=== PATIENT | male | born 2000 | race African-American/Black ===

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

== ENCOUNTER → 2021-05-14 08:45 | Outpatient (BNVA) | payer MEDICAID, SELFPAY | PROVIDERS: Visit Provider Counselor Mental Health | DX: F90.2 Attention-deficit hyperactivity disorder, combined type (principal); F43.11 Post-traumatic stress disorder, acute | CPT/HCPCS: 90834 ==

== ENCOUNTER → 2021-05-29 08:43 | Outpatient (BNVA) | payer MEDICAID, SELFPAY | PROVIDERS: Visit Provider Counselor Mental Health | DX: F90.2 Attention-deficit hyperactivity disorder, combined type (principal); F43.11 Post-traumatic stress disorder, acute | CPT/HCPCS: 90834 ==

== ENCOUNTER 2021-06-02 09:35 | Inpatient (IN) | payer MEDICAID, SELFPAY ==
[2021-06-02 09:37] VITALS: BMI 29.4
[2021-06-02 09:42] VITALS: BP 139/84; PULSE 77; RESP 16; TEMP 36.3; O2SAT 97
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
[2021-06-02 13:08] VITALS: BP 139/84; PULSE 77; RESP 16; TEMP 36.6; O2SAT 97
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
[2021-06-02] MEDS: citalopram 20 mg Tablet PO (15:01)
[2021-06-02 15:33] LABS: Basophils % 0.5 %; Eosinophils # 0.3 10^3/uL (0.0-0.8); Eosinophils % 4.4 %; Hematocrit 44.9 % (42.0-52.0); Lymphocytes # 2.2 10^3/uL (1.5-6.5); Lymphocytes % 33.7 %; Mean Corpuscular HGB Conc 33.4 g/dL (30.0-36.0); Mean Corpuscular Hemoglobin 30.8 pg (28.0-34.0); Mean Corpuscular Volume 92.2 fL (80-94); Monocytes # 0.9 10^3/uL (0.2-0.9); Neutrophils # 3.08 10^3/uL (1.8-8.0); Neutrophils % 47.2 %; Nucleated Red Blood Cells % 0 %; Platelet Count 278 10^3/cmm (130-400); Red Blood Count 4.87 10^6/uL (4.1-5.3); Red Cell Distribution Width 13.2 % (12.1-15.1); White Blood Count 6.5 10^3/uL (4.5-13.0)
[2021-06-02 15:54] LABS: Alanine Aminotransferase 37 U/L (0-41); Albumin Level 4.4 g/dL (3.5-5.2); Alkaline Phosphatase 108 IU/L (40-130); Aspartate Amino Transferase 26 U/L (0-40); Blood Urea Nitrogen 14 mg/dL (6-20); Calcium 9.7 mg/dL (8.5-10.5); Carbon Dioxide 25 mmol/L (22-29); Chloride 104 mmol/L (98-107); Glomerular Filtration Rate 131.5 mL/min (90-130); Glucose 111 mg/dL (65-115); Osmolality Calculated 293 mOsm/kg (285-295); Sodium 141 mmol/L (136-145); Total Bilirubin 0.7 mg/dL (0.15-1.2); Total Protein 7.4 g/dL (6.6-8.7)
[2021-06-02 15:56] LABS: Anion Gap 16.4 (5-19); Potassium 4.4 mmol/L (3.5-5.1)
[2021-06-02 16:59] VITALS: PULSE 100; RESP 18; O2SAT 96
[2021-06-02 20:57] VITALS: BP 137/86; PULSE 99; RESP 16; TEMP 36; O2SAT 94
--- NOTE | 2021-06-03 05:47 | PC.NURSE ---
PM ASSESSMENT PT V/S ARE WNL, NO BEHAVIORAL OUTBURSTS, PT IS APPROPRIATE WITH STAFF. SHY AT FIRST, CALM AND COOPERATIVE.
[2021-06-03 06:00] VITALS: BP 134/80; PULSE 92; RESP 18; TEMP 37; O2SAT 98
[2021-06-03] MEDS: citalopram 20 mg Tablet PO (09:06)
[2021-06-03] MEDS: montelukast sodium 10 mg Tablet PO (09:07)
[2021-06-03 14:00] VITALS: BP 150/80; PULSE 92; RESP 17; TEMP 36.7; O2SAT 97
--- NOTE | 2021-06-03 14:11 | PM.NPN ---
Subjective NPU Subjective: Interval history: Denies any interval complaints Denies any interval mood symptoms, denies any suicidal ideation Denies any interval irritability or anger Reports being compliant with medication and denies any medication side effects Continues to be future oriented and looking forward to going to a long term Per staff, no interval inappropriate behaviors Mental Status Exam MSE Comments: Pleasant, polite, interactive, appropriately groomed and dressed, calm, cooperative, childlike in his mannerisms, good eye contact Psychomotor activity is neither increased or decreased, no agitation Speech is normal rate and volume, spontaneous, clear articulation, not pressured I feel good, congruent affect, smiles appropriate times, not labile Alert and oriented to person, place, time, situation Memory and concentration appear to be fair to intact per interview Thought process, linear, no flight of ideas, no looseness of associations Thought content, no delusions, no hallucinations, no suicidal homicidal ideation Insight and judgment appear to be fair Vitals/I&O/Wt Last Vital Signs Temp 98.6 F 06/03/21 06:00 Pulse 92 06/03/21 06:00 Resp 18 06/03/21 06:00 BP 134/80 06/03/21 06:00 Pulse Ox 98 06/03/21 06:00 Weight last 48 hrs Weight 103.873 kg Weight 103.873 kg Data NPU : 06/02/21 15:23 06/02/21 15:13 A&P Assessment and plan (1) PTSD (post-traumatic stress disorder): Status: Acute (2) ADHD: Status: Acute Qualifiers: Attention deficit-hyperactivity disorder type: combined inattentive-hyperactive Qualified Code(s): F90.2 - Attention-deficit hyperactivity disorder, combined type Additional A&P Information No interval changes, no interval mood symptoms, no behavioral disturbances, pleasant and polite, cooperative, no inappropriate behaviors being reported by staff CBC and CMP were unremarkable, patient tolerating Depakote well with no reports of any medication side effects CONTINUE current medication, continue to monitor Attestations NPU Medical Necessity Statement*: Continues to require psychiatric hospitalization for stabilization, coordination for safe discharge Coding Level of Care Code Acute Logistics Officer for [facility] Fwd Diagnoses PTSD (post-traumatic stress disorder) F43.10 ADHD F90.2 Attention deficit-hyperactivity disorder type: combined inattentive-hyperactive
[2021-06-03 22:00] VITALS: BP 138/90; PULSE 93; RESP 17; TEMP 37; O2SAT 95
[2021-06-04 06:00] VITALS: BP 124/75; PULSE 98; RESP 15; TEMP 36.8; O2SAT 98
[2021-06-04] MEDS: citalopram 20 mg Tablet PO (08:57)
[2021-06-04] MEDS: montelukast sodium 10 mg Tablet PO (08:57)
--- NOTE | 2021-06-04 13:39 | PM.NPN ---
Subjective NPU Subjective: Interval history: Continues to deny any interval complaints Denies any interval mood symptoms, denies any suicidal ideation Denies any interval irritability or anger Compliant with medication and denies any medication side effects Per staff, no interval inappropriate behaviors Mental Status Exam MSE Comments: Appropriately groomed and dressed, polite, cooperative, childlike in his mannerisms, good eye contact Psychomotor activity is neither increased or decreased, no agitation Speech is normal rate and volume, spontaneous, clear articulation, not pressured Good, congruent affect, smiles appropriate times, not labile Alert and oriented to person, place, time, situation Memory and concentration appear to be fair to intact per interview Thought process, linear, no flight of ideas, no looseness of associations Thought content, no delusions, no hallucinations, no suicidal homicidal ideation Insight and judgment appear to be fair Vitals/I&O/Wt Last Vital Signs Temp 98.2 F 06/04/21 06:00 Pulse 98 06/04/21 06:00 Resp 15 06/04/21 06:00 BP 124/75 06/04/21 06:00 Pulse Ox 98 06/04/21 06:00 Data NPU : 06/02/21 15:23 06/02/21 15:13 A&P Assessment and plan (1) PTSD (post-traumatic stress disorder): Status: Acute (2) ADHD: Status: Acute Qualifiers: Attention deficit-hyperactivity disorder type: combined inattentive-hyperactive Qualified Code(s): F90.2 - Attention-deficit hyperactivity disorder, combined type Additional A&P Information No interval mood symptoms, continues to be appropriate CONTINUE current medication, continue to monitor Attestations NPU Medical Necessity Statement*: Continues to require psychiatric hospitalization for medication stabilization Coding Level of Care Code Acute Visual Merchandising Assistant for [facility] Fwd Diagnoses PTSD (post-traumatic stress disorder) F43.10 ADHD F90.2 Attention deficit-hyperactivity disorder type: combined inattentive-hyperactive
[2021-06-04 13:43] VITALS: BP 146/78; PULSE 90; RESP 17; TEMP 37.1; O2SAT 96
[2021-06-04 19:38] VITALS: BP 157/78; PULSE 80; RESP 18; TEMP 36.8; O2SAT 98
[2021-06-05 06:00] VITALS: BP 114/70; PULSE 82; RESP 17; TEMP 37.2; O2SAT 96
[2021-06-05] MEDS: montelukast sodium 10 mg Tablet PO (07:37)
[2021-06-05] MEDS: citalopram 20 mg Tablet PO (07:37)
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
[2021-06-05 09:31] VITALS: BP 114/70; PULSE 82; RESP 17; TEMP 37.2; O2SAT 96
== END 2021-06-05 14:14 | disposition home or self-care (01) | DRG 882 ==
PROVIDERS: Admitting Provider Psychiatry & Neurology Psychiatry; Visit Provider Psychiatry & Neurology Psychiatry
DX: F43.10 Post-traumatic stress disorder, unspecified (principal); F90.2 Attention-deficit hyperactivity disorder, combined type; F91.8 Other conduct disorders; Z62.9 Problem related to upbringing, unspecified; J45.909 Unspecified asthma, uncomplicated; F79 Unspecified intellectual disabilities; F81.9 Developmental disorder of scholastic skills, unspecified
CPT/HCPCS: 36415; 80053; 85025

== ENCOUNTER → 2021-06-11 07:43 | Outpatient (BNVA) | payer MEDICAID, SELFPAY | PROVIDERS: Visit Provider Counselor Mental Health | DX: F90.2 Attention-deficit hyperactivity disorder, combined type (principal); F43.11 Post-traumatic stress disorder, acute | CPT/HCPCS: 90834 ==

== ENCOUNTER → 2021-06-15 13:41 | Outpatient (BNVA) | payer MEDICAID, SELFPAY | PROVIDERS: Visit Provider Psychiatry & Neurology Psychiatry | DX: F90.9 Attention-deficit hyperactivity disorder, unspecified type (principal); F43.12 Post-traumatic stress disorder, chronic; F65.0 Fetishism; F79 Unspecified intellectual disabilities; F63.9 Impulse disorder, unspecified | CPT/HCPCS: 99204 ==

== ENCOUNTER → 2021-06-19 09:40 | Outpatient (BNVA) | payer MEDICAID, SELFPAY | PROVIDERS: Visit Provider Counselor Mental Health | DX: F90.2 Attention-deficit hyperactivity disorder, combined type (principal); F43.11 Post-traumatic stress disorder, acute | CPT/HCPCS: 90832 ==

== ENCOUNTER → 2021-07-03 09:37 | Outpatient (BNVA) | payer MEDICAID, SELFPAY | PROVIDERS: Visit Provider Counselor Mental Health | DX: F90.2 Attention-deficit hyperactivity disorder, combined type (principal); F43.11 Post-traumatic stress disorder, acute | CPT/HCPCS: 90834 ==

== ENCOUNTER 2021-07-15 12:04 | Inpatient (IN) | payer MEDICAID, SELFPAY ==
--- NOTE | 2021-07-15 12:07 | ECG_ITS ---
[facility] Test Date: 2021-07-15 Pat Name: Jazz Moon Department: Room: Gender: Male Supply Chain Development Manager: : 2000 Requested By: John Mcmillan Order Number: [id number] Francis MD: Meaghan Burch M.D. Measurements Intervals [place] Rate: 90 P: 40 MO: 163 QRS: 47 QRSD: 83 T: 5 QT: 338 QTc: 415 Interpretive Statements SINUS RHYTHM WITH SINUS ARRHYTHMIA POSSIBLE LEFT ATRIAL ENLARGEMENT [-0.1mV P-WAVE IN V1/V2] NONSPECIFIC ST & T-WAVE ABNORMALITY No previous ECG available for comparison Electronically Signed On 07-17-2021 18:20:45 CDT by Meaghan Burch M.D. [email or web address]
[2021-07-15 12:11] VITALS: BP 157/97; PULSE 107; RESP 16; TEMP 36.7; O2SAT 95; BMI 29.8
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
[2021-07-15 13:02] VITALS: BP 135/79; PULSE 91; O2SAT 94
[2021-07-15 13:21] LABS: Basophils % 0.7 %; Eosinophils # 0.3 10^3/uL (0.0-0.8); Eosinophils % 4.4 %; Hematocrit 42.9 % (42.0-52.0); Hemoglobin 14.4 g/dL (11.7-16.6); Lymphocytes # 1.7 10^3/uL (1.5-6.5); Lymphocytes % 27.1 %; Mean Corpuscular HGB Conc 33.6 g/dL (30.0-36.0); Mean Corpuscular Hemoglobin 30.8 pg (28.0-34.0); Mean Corpuscular Volume 91.9 fl (80-94); Mean Platelet Volume 9.3 fL (7.4-10.4); Monocytes # 0.7 10^3/uL (0.2-0.9); Monocytes % 11.9 %; Neutrophils # 3.41 10^3/uL (1.8-8.0); Neutrophils % 55.6 %; Nucleated Red Blood Cells % 0 %; Platelet Count 243 10^3/cmm (130-400); Red Blood Count 4.67 10^6/uL (4.1-5.3); Red Cell Distribution Width 13.2 % (12.1-15.1); White Blood Count 6.1 10^3/uL (4.5-13.0)
[2021-07-15 13:48] LABS: Alanine Aminotransferase 53 U/L (0-41); Albumin Level 4.4 g/dL (3.5-5.2); Alkaline Phosphatase 91 IU/L (40-130); Anion Gap 16.1 (5-19); Aspartate Amino Transferase 28 U/L (0-40); Blood Urea Nitrogen 16 mg/dL (6-20); Calcium 9.5 mg/dL (8.5-10.5); Carbon Dioxide 25 mmol/L (22-29); Chloride 98 mmol/L (98-107); Globulin 2.9 g/dL (1.3-4.6); Glomerular Filtration Rate 175.8 mL/min (90-130); Glucose 111 mg/dL (65-115); Osmolality Calculated 282 mOsm/kg (285-295); Potassium 4.1 mmol/L (3.5-5.1); Sodium 135 mmol/L (136-145); Total Bilirubin 0.6 mg/dL (0.15-1.2); Total Protein 7.3 g/dL (6.6-8.7)
[2021-07-15 13:55] LABS: Acetaminophen < 5.0 ug/mL (10-30); Alcohol Level < 10 mg/dL (0-10); Salicylate < 0.3 mg/dL (3-10)
[2021-07-15 15:12] VITALS: BP 153/77; PULSE 86; RESP 18; TEMP 36.9; O2SAT 94
[2021-07-15 16:34] LABS: Amphetamines Screen Urine Positive (Negative); Barbiturates Screen Urine Negative (Negative); Cocaine Screen Urine Negative (Negative); PCP Screen Urine Negative (Negative); THC Screen Urine Negative (Negative)
[2021-07-15 16:35] LABS: Benzodiazepines Screen Urine Negative (Negative); Opiate Screen Urine Negative (Negative)
[2021-07-15 20:09] VITALS: BP 137/72; PULSE 77; RESP 20; TEMP 37; O2SAT 96
[2021-07-16 06:00] VITALS: BP 99/59; PULSE 75; RESP 19; TEMP 36.6; O2SAT 95
[2021-07-16] MEDS: citalopram 20 mg Tablet PO (09:05)
[2021-07-16] MEDS: montelukast sodium 10 mg Tablet PO (09:05)
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
[2021-07-16 13:51] VITALS: BP 110/57; PULSE 79; RESP 15; TEMP 36.7; O2SAT 99
[2021-07-16 20:25] VITALS: BP 130/75; PULSE 75; RESP 18; TEMP 37.1; O2SAT 97
--- NOTE | 2021-07-17 05:41 | PC.NURSE ---
previous behavior assessment was for a different patient.
[2021-07-17 06:00] VITALS: BP 105/44; PULSE 65; RESP 17; TEMP 37.1; O2SAT 97
[2021-07-17] MEDS: citalopram 20 mg Tablet PO (09:09)
[2021-07-17] MEDS: montelukast sodium 10 mg Tablet PO (09:09)
[2021-07-17 14:00] VITALS: BP 131/73; PULSE 66; RESP 18; TEMP 36.9; O2SAT 99
--- NOTE | 2021-07-17 18:13 | P.PN_ITS ---
Subjective NPU Subjective: Interval history: Patient presented today reporting that he is doing okay. He had some continued conversation about the circumstances regarding and he feels fairly confident that the whole idea of him going to a more controlled environment would be in his best interest. He thought that we did get someone that was not willing to consider her more and the plan is to h ave him, on Tuesday and evaluate him in person to make a decision. We discussed the risk benefits and alternatives of having him stay and make sure this takes place on Tuesday of the risk of him leaving and getting into some difficulties and he understood agreed proceed as documented in his note. Mental Status Exam MSE Comments: This is a tall, well-nourished, well-developed, male, in hospital scrubs, with adequate grooming, and eye contact. No abnormal movements except for mild psychomotor retardation. Cooperative with exam in no acute distress. Speech was slightly decreased rate and volume. Mood described as okay; affect slightly subdued. Thought process, organized. Thought content: patient denied any suicidal or homicidal ideation, there were no delusions reported or noted, patient denied any auditory or visual hallucinations. Attention, concentration, and memory appear intact but were not formally tested. He is alert and oriented times three. Insight and judgment are limited. Impulse control impaired and intellectual ability limited to impaired. Vitals/I&O/Wt Last Vital Signs Temp 97.7 F 07/17/21 20:35 Pulse 87 07/17/21 20:35 Resp 18 07/17/21 20:35 BP 138/66 07/17/21 20:35 Pulse Ox 97 07/17/21 20:35 Data NPU : 07/15/21 13:11 07/15/21 13:11 A&P Assessment and plan (1) Suicidal ideation: Status: Acute (2) Impulse control disorder in adult: Status: Acute (3) Intellectual disability: Status: Acute (4) Fetishism: Status: Acute (5) ADHD (attention deficit hyperactivity disorder): Status: Acute (6) Post-traumatic stress disorder, chronic: Status: Acute Additional A&P Information This is a 20 year old, male, with attention deficit hyperactivity disorder, by history, versus impulse control disorder, unspecified, and fetishism, who presents after an event where he was trying to obtain some items for his fetish that nearly got him arrested, as his family searches for an ISL. RECOMMENDATION AND PLAN: 1. Continue current medication. 2. Encourage individual, group, and milieu therapy. 3. Continue q-15 minute checks for safety. 4. Will work with outpatient team to determine whether there are some medication changes that would make sense, and see how we can assist in him getting to an ISL. Given recent behaviors and risk factors we will continue to monitor, through Tuesday. Involuntary Hold Information 96 Hour Hold: 96 Hour Involuntary Admission: No Attestations NPU Medical Necessity Statement*: Inpatient hospitalization is medically necessary and the clinically appropriate intervention at this time. We will monitor medications and make changes as indicated. =Likely length of stay 3-4 days. Coding Level of Care Code Acute Retail Warehouse Supervisor for g Fwd Diagnoses Suicidal ideation R45.851 Impulse control disorder in adult F63.9 Intellectual disability F79 Fetishism F65.0 ADHD (attention deficit hyperactivity disorder) F90.9 Post-traumatic stress disorder, chronic F43.12
[2021-07-17 20:35] VITALS: BP 138/66; PULSE 87; RESP 18; TEMP 36.5; O2SAT 97
[2021-07-18 06:00] VITALS: BP 109/56; PULSE 69; RESP 16; TEMP 36.7; O2SAT 96
[2021-07-18] MEDS: montelukast sodium 10 mg Tablet PO (10:05)
[2021-07-18] MEDS: citalopram 20 mg Tablet PO (10:05)
--- NOTE | 2021-07-18 10:17 | PM.NPN ---
Subjective NPU Subjective: Interval history: Patient presents today with a positive skin on the ISL placement possibilities. He reported that he is sure that it to be helpful giving him structure and a safe place to thrive. He denied any issues on the unit or any problems he should discuss and reports that he is eating okay and sleeping fine. Mental Status Exam MSE Comments: This is a tall, well-nourished, well-developed, male, in hospital scrubs, with adequate grooming, and eye contact. No abnormal movements. Cooperative with exam in no acute distress. Speech was slightly decreased rate and volume. Mood described as fine; affect congruent. Thought process, organized. Thought content: patient denied any suicidal or homicidal ideation, there were no delusions reported or noted, patient denied any auditory or visual hallucinations. Attention, concentration, and memory appear intact but were not formally tested. He is alert and oriented times three. Insight and judgment appear fair. Impulse control impaired and intellectual ability limited to impaired. Vitals/I&O/Wt Last Vital Signs Temp 98.1 F 07/18/21 06:00 Pulse 69 07/18/21 06:00 Resp 16 07/18/21 06:00 BP 109/56 07/18/21 06:00 Pulse Ox 96 07/18/21 06:00 Data NPU : 07/15/21 13:11 07/15/21 13:11 A&P Additional A&P Information (1) Suicidal ideation: (2) Impulse control disorder in adult: (3) Intellectual disability: (4) Fetishism: (5) ADHD (attention deficit hyperactivity disorder): (6) Post-traumatic stress disorder, chronic: Additional A&P Information This is a 20 year old, male, with attention deficit hyperactivity disorder, by history, versus impulse control disorder, unspecified, and fetishism, who presents after an event where he was trying to obtain some items for his fetish that nearly got him arrested, as his family searches for an ISL. RECOMMENDATION AND PLAN: 1. Continue current medication. 2. Encourage individual, group, and milieu therapy. 3. Continue q-15 minute checks for safety. 4. Will work with outpatient team to determine whether there are some medication changes that would make sense. He is open to the ISL placement and awaiting the interview on Tuesday. Involuntary Hold Information 96 Hour Hold: 96 Hour Involuntary Admission: No Attestations NPU Medical Necessity Statement*: Inpatient hospitalization is medically necessary and the clinically appropriate intervention at this time. We will monitor medications and make changes as indicated. Likely length of stay 3-4 days. Coding Level of Care Code Acute It Security Architect for Camryn Nelson
[2021-07-18 14:00] VITALS: BP 156/85; PULSE 97; RESP 20; TEMP 36.3; O2SAT 95
[2021-07-18 20:32] VITALS: BP 141/67; PULSE 105; RESP 20; TEMP 36.9; O2SAT 95
[2021-07-18] MEDS: hyDROXYzine 25 mg Capsule 50 MG PO (21:38)
[2021-07-18] MEDS: trazodone 50 mg Tablet PO (21:38)
[2021-07-18] MEDS: albuterol 8 gm MDI 2 PUFF INHALATION (22:35)
[2021-07-18 22:40] VITALS: PULSE 96; RESP 18; O2SAT 96
[2021-07-19 06:00] VITALS: BP 118/66; PULSE 87; RESP 20; TEMP 37; O2SAT 96
[2021-07-19] MEDS: citalopram 20 mg Tablet PO (09:07)
[2021-07-19] MEDS: montelukast sodium 10 mg Tablet PO (09:07)
--- NOTE | 2021-07-19 10:10 | PM.NPN ---
Subjective NPU Subjective: Interval history: Patient presents today denying any complaints. He was somewhat anxious about what type of the interview with the ISL would be. I promised him that after our treatment team meeting I would make sure someone relate to him the time if we were able to determine that. Otherwise he denied any issues and is looking forward to the meeting. Mental Status Exam MSE Comments: This is a tall, well-nourished, well-developed, male, in hospital scrubs, with adequate grooming, and eye contact. No abnormal movements. Cooperative with exam in no acute distress. Speech was slightly decreased rate and volume. Mood described as fine; affect congruent. Thought process, organized. Thought content: patient denied any suicidal or homicidal ideation, there were no delusions reported or noted, patient denied any auditory or visual hallucinations. Attention, concentration, and memory appear intact but were not formally tested. He is alert and oriented times three. Insight and judgment appear fair. Impulse control impaired and intellectual ability limited to impaired. Vitals/I&O/Wt Last Vital Signs Temp 98.6 F 07/19/21 06:00 Pulse 87 07/19/21 06:00 Resp 20 H 07/19/21 06:00 BP 118/66 07/19/21 06:00 Pulse Ox 96 07/19/21 06:00 Weight last 48 hrs Weight 107.048 kg Weight 107.048 kg Data NPU : 07/15/21 13:11 07/15/21 13:11 A&P Additional A&P Information (1) Suicidal ideation: (2) Impulse control disorder in adult: (3) Intellectual disability: (4) Fetishism: (5) ADHD (attention deficit hyperactivity disorder): (6) Post-traumatic stress disorder, chronic: This is a 20 year old, male, with attention deficit hyperactivity disorder, by history, versus impulse control disorder, unspecified, and fetishism, who presents after an event where he was trying to obtain some items for his fetish that nearly got him arrested, as his family searches for an ISL. RECOMMENDATION AND PLAN: 1. Continue current medication. 2. Encourage individual, group, and milieu therapy. 3. Continue q-15 minute checks for safety. 4. Will work with outpatient team to determine whether there are some medication changes that would make sense. He is open to the ISL placement and awaiting the interview tomorrow. Involuntary Hold Information 96 Hour Hold: 96 Hour Involuntary Admission: No Attestations NPU Medical Necessity Statement*: Inpatient hospitalization is medically necessary and the clinically appropriate intervention at this time. We will monitor medications and make changes as indicated. Likely length of stay 2-3 days. Coding Level of Care Code Acute Fashion Consultant Selling for Camryn Nelson
[2021-07-19 14:00] VITALS: BP 133/67; PULSE 89; RESP 16; TEMP 36.7; O2SAT 96
[2021-07-19 20:39] VITALS: BP 126/80; PULSE 79; RESP 22; TEMP 36.9; O2SAT 95
[2021-07-19] MEDS: hyDROXYzine 25 mg Capsule 50 MG PO (22:45)
[2021-07-19] MEDS: trazodone 50 mg Tablet PO (22:45)
[2021-07-20 06:00] VITALS: BP 111/55; PULSE 83; RESP 18; TEMP 36.8; O2SAT 95
[2021-07-20] MEDS: montelukast sodium 10 mg Tablet PO (09:52)
[2021-07-20] MEDS: citalopram 20 mg Tablet PO (09:52)
[2021-07-20 13:54] VITALS: BP 128/75; PULSE 85; RESP 17; TEMP 36.9; O2SAT 96
--- NOTE | 2021-07-20 18:25 | P.PN_ITS ---
Subjective NPU Subjective: Interval history: Patient presents today reporting that he is doing okay and he is willing to stay through till tomorrow. Multiple calls were received from his mother with expression of great concern about his discharge and being upset that something else has not been arranged. Insurance called with some confusion question of an evaluation for the patient. He understands we are awaiting the decision from the ISL and beyond that family has been reportedly investigating ISL's. He is willing to go to any place that is reasonable. Mental Status Exam MSE Comments: This is a tall, well-nourished, well-developed, male, in hospital scrubs, with adequate grooming, and eye contact. No abnormal movements. Cooperative with exam in no acute distress. Speech was slightly decreased rate and volume. Mood described as pretty good; affect congruent. Thought process, organized. Thought content: patient denied any suicidal or homicidal ideation, there were no delusions reported or noted, patient denied any auditory or visual hallucinations. Attention, concentration, and memory appear intact but were not formally tested. He is alert and oriented times three . Insight and judgment appear fair. Impulse control impaired and intellectual ability limited to impaired. Vitals/I&O/Wt Last Vital Signs Temp 98.9 F 07/20/21 19:53 Pulse 94 07/20/21 19:53 Resp 20 H 07/20/21 19:53 BP 138/84 07/20/21 19:53 Pulse Ox 94 07/20/21 19:53 Weight last 48 hrs Weight 107.048 kg Data NPU : 07/15/21 13:11 07/15/21 13:11 A&P Additional A&P Information (1) Suicidal ideation: (2) Impulse control disorder in adult: (3) Intellectual disability: (4) Fetishism: (5) ADHD (attention deficit hyperactivity disorder): (6) Post-traumatic stress disorder, chronic: This is a 20 year old, male, with attention deficit hyp eractivity disorder, by history, versus impulse control disorder, unspecified, and fetishism, who presents after an event where he was trying to obtain some items for his fetish that nearly got him arrested, as his family searches for an ISL. RECOMMENDATION AND PLAN: 1. Continue current medication. 2. Encourage individual, group, and milieu therapy. 3. Continue q-15 minute checks for safety. 4. Patient awaiting ISL decision where they requested 1 more day given the chaos and frustration at home discharge seems to be setting him up for failure. He is open to the ISL placement and awaiting the decision tomorrow. The elements of his condition were apparent over a month ago and family has been working on this programming but unfortunately systems wheels will slowly and his behaviors do portend some risk, not sufficient to recommend continued acute hospitalization prior to residential services becoming available. Involuntary Hold Information 96 Hour Hold: 96 Hour Involuntary Admission: No Attestations NPU Medical Necessity Statement*: Inpatient hospitalization is medically necessary and the clinically appropriate intervention at this time. We will monitor medications and make changes as indicated. Tentative plan for discharge tomorrow. Coding Level of Care Code Acute Coordinating Producer for Camryn Nelson
[2021-07-20 19:53] VITALS: BP 138/84; PULSE 94; RESP 20; TEMP 37.2; O2SAT 94
[2021-07-20] MEDS: trazodone 50 mg Tablet PO (22:16)
[2021-07-20] MEDS: hyDROXYzine 25 mg Capsule 50 MG PO (22:16)
--- NOTE | 2021-07-20 22:20 | PC.NURSE ---
Trazodone 50mg PO, Vistaril 50mgPO given for sleep and anxiety.
[2021-07-21 06:00] VITALS: BP 116/75; PULSE 72; RESP 20; TEMP 36.7; O2SAT 96
[2021-07-21] MEDS: citalopram 20 mg Tablet PO (08:42)
[2021-07-21] MEDS: montelukast sodium 10 mg Tablet PO (08:42)
--- NOTE | 2021-07-21 12:15 | NPU.GN ---
[facility] Group Topic: 2 true 1 false General Mood of Group:Patient did attend group, he was properly dressed, on time, and had good hygiene. In group we played a game called 2 true one false. Everyone had to come up with 2 true statements about their self and one false statement about their self, this was a way to get group members to openly talk about themselves. They are able to utilize positive self talk. The group interacted properly and openly. We discussed the purpose of NPU, ways to openly speak with the physician and discussed the purpose of delinquency prevention social worker and safe discharge. Jazz shared his positive experience from high school playing baseball and basketball. He also shared how he met a few famous football players in his time.
[2021-07-21 14:00] VITALS: BP 126/77; PULSE 92; RESP 20; TEMP 36.3; O2SAT 99
[2021-07-21 14:51] VITALS: BP 116/75; PULSE 72; RESP 20; TEMP 36.7; O2SAT 96
[2021-07-21] MEDS: OLANZapine 5 mg ODT PO (16:34)
--- NOTE | 2021-07-21 16:35 | PC.NURSE ---
PRN ZYPREXA ZYDIS PRN ZYPREXA ZYDIS 5 MG GIVEN PO PER PT C/O AGITATION. PT REPORTS THAT HE IS ANGRY THAT HE WAS NOT ABLE TO GO HOME TODAY AND REQUESTED SOMETHING FOR HIS AGITATION. WILL CONTINUE TO MONITOR FOR MEDICATION EFFECTIVENESS.
--- NOTE | 2021-07-21 17:59 | P.PN_ITS ---
Subjective NPU Subjective: Interval history: Patient presents today clearly reacting to the chaos of the discharge challenges. The ISL which had previously led us to believe that they were on the verge of a decision punted the ball further down the road saying he would be a week until a certain decision-maker returned and they can give an actual answer. Patient's mother had reported now significant trepidation about him returning more or less that she would not let him return and we discussed the possibility of a custodial bed of some sort. Patient expressed significant anxiety about the idea of going to a custodial and given the continued disintegration of the plan we agreed to reconvene in the morning to see if we could add a more stable discharge plan Mental Status Exam MSE Comments: This is a tall, well-nourished, well-developed, male, in hospital scrubs, with adequate grooming, and eye contact. No abnormal movements. Cooperative with exam in no acute distress. Speech was slightly decreased rate and volume. Mood described as anxious; affect congruent. Thought process, organized. Thought content: patient denied any suicidal or homicidal ideation, there were no delusions reported or noted, patient denied any auditory or visual hallucinations. Attention, concentration, and memory appear intact but were not formally tested. He is alert and oriented times three. Insight and judgment appear fair. Impulse control impaired and intellectual ability limited to impaired. Vitals/I&O/Wt Last Vital Signs Temp 97.9 F 07/21/21 21:23 Pulse 82 07/21/21 21:23 Resp 16 07/21/21 21:23 BP 135/75 07/21/21 21:23 Pulse Ox 93 07/21/21 21:23 Data NPU : 07/15/21 13:11 07/15/21 13:11 A&P Additional A&P Information (1) Suicidal ideation: (2) Impulse control disorder in adult: (3) Intellectual disability: (4) Fetishism: (5) ADHD (attention deficit hyperactivity disorder): (6) Post-traumatic stress disorder, chronic: This is a 20 year old, male, with attention deficit hyperactivity disorder, by history, versus impulse control disorder, unspecified, and fetishism, who presents after an event where he was trying to obtain some items for his fetish that nearly got him arrested, as his family searches for an ISL. RECOMMENDATION AND PLAN: 1. Continue current medication. 2. Encourage individual, group, and milieu therapy. 3. Continue q-15 minute checks for safety. 4. Discharge plan fell apart as ISL which had stated they were on the verge of a decision now put that decision into next week. Patient is lower functioning and the idea of him going to a custodial bed while he is anxious likely in part reacting to conversations with his mother and partially reacting to his lack of readiness for independence is somewhat concerning. He ultimately may be our only option but given the significant of the decision and the lateness of the day as the discharge plan fell apart. We will reconvene in the morning with the whole day to accomplice as reasonable and as safe a discharge as we can. Involuntary Hold Information 96 Hour Hold: 96 Hour Involuntary Admission: No Attestations NPU Medical Necessity Statement*: Inpatient hospitalization is medically necessary and the clinically appropriate intervention at this time. We will monitor medications and make changes as indicated. Tentative plan for discharge tomorrow. Coding Level of Care Code Acute Supervisor Decorating for Camryn Nelson
[2021-07-21 21:23] VITALS: BP 135/75; PULSE 82; RESP 16; TEMP 36.6; O2SAT 93
[2021-07-21] MEDS: trazodone 50 mg Tablet PO (23:42)
[2021-07-21] MEDS: hyDROXYzine 25 mg Capsule 50 MG PO (23:42)
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
[2021-07-22 06:00] VITALS: BP 109/67; PULSE 88; RESP 18; TEMP 36.6; O2SAT 95
[2021-07-22] MEDS: citalopram 20 mg Tablet PO (09:36)
[2021-07-22] MEDS: montelukast sodium 10 mg Tablet PO (09:36)
[2021-07-22 13:03] VITALS: BP 109/67; PULSE 88; RESP 18; TEMP 36.6; O2SAT 95
== END 2021-07-22 13:39 | disposition home or self-care (01) | DRG 883 ==
LOC: ER 14:06 → NP 14:59
PROVIDERS: Physician Assistant; Admitting Provider Psychiatry & Neurology Psychiatry; Emergency Provider Emergency Medicine; PCP Family Medicine; Visit Provider Psychiatry & Neurology Psychiatry
DX: F63.89 Other impulse disorders (principal); R45.851 Suicidal ideations; F65.0 Fetishism; F43.12 Post-traumatic stress disorder, chronic; R41.83 Borderline intellectual functioning; F90.9 Attention-deficit hyperactivity disorder, unspecified type; F91.9 Conduct disorder, unspecified; J45.909 Unspecified asthma, uncomplicated; Q86.0 Fetal alcohol syndrome (dysmorphic); Z62.810 Personal history of physical and sexual abuse in childhood; Z81.4 Family history of other substance abuse and dependence; Z77.22 Contact with and (suspected) exposure to environmental tobacco smoke (acute) (chronic)
CPT/HCPCS: 80053; 80306; 80307; 85025; 93005; 94640; 99285; G0378; J3535

== ENCOUNTER → 2021-08-21 09:47 | Outpatient (BNVA) | payer MEDICAID, SELFPAY | PROVIDERS: PCP Family Medicine; Visit Provider Counselor Mental Health | DX: G90.2 Horner's syndrome (principal); F43.11 Post-traumatic stress disorder, acute | CPT/HCPCS: 90847 ==

== ENCOUNTER → 2021-08-28 10:42 | Outpatient (BNVA) | payer MEDICAID, SELFPAY | PROVIDERS: PCP Family Medicine; Visit Provider Counselor Mental Health | DX: F90.2 Attention-deficit hyperactivity disorder, combined type (principal); F43.11 Post-traumatic stress disorder, acute | CPT/HCPCS: 90834 ==

== ENCOUNTER → 2021-09-17 09:53 | Outpatient (BNVA) | payer MEDICAID, SELFPAY | PROVIDERS: PCP Family Medicine; Visit Provider Counselor Mental Health | DX: F90.2 Attention-deficit hyperactivity disorder, combined type (principal); F43.11 Post-traumatic stress disorder, acute | CPT/HCPCS: 90834 ==

== ENCOUNTER → 2021-10-05 07:48 | Outpatient (BNVA) | payer MEDICAID, SELFPAY | PROVIDERS: PCP Family Medicine; Visit Provider Counselor Mental Health | DX: F90.2 Attention-deficit hyperactivity disorder, combined type (principal); F43.11 Post-traumatic stress disorder, acute | CPT/HCPCS: 90834 ==

== ENCOUNTER → 2021-10-26 13:43 | Outpatient (BNVA) | payer MEDICAID, SELFPAY | PROVIDERS: PCP Family Medicine; Visit Provider Counselor Mental Health | DX: F90.2 Attention-deficit hyperactivity disorder, combined type (principal); F43.11 Post-traumatic stress disorder, acute | CPT/HCPCS: 90832 ==

== ENCOUNTER → 2021-11-17 12:29 | Outpatient (BNVA) | payer MEDICAID, SELFPAY | PROVIDERS: PCP Family Medicine; Visit Provider Counselor Mental Health | DX: F90.2 Attention-deficit hyperactivity disorder, combined type (principal); F43.11 Post-traumatic stress disorder, acute | CPT/HCPCS: 90832 ==

== ENCOUNTER → 2021-12-16 12:43 | Outpatient (BNVA) | payer MEDICAID, SELFPAY | PROVIDERS: PCP Family Medicine; Visit Provider Counselor Mental Health | DX: F90.2 Attention-deficit hyperactivity disorder, combined type (principal); F43.11 Post-traumatic stress disorder, acute | CPT/HCPCS: 90834 ==

== ENCOUNTER → 2022-01-25 12:56 | Outpatient (BNVA) | payer MEDICAID, SELFPAY | PROVIDERS: PCP Family Medicine; Visit Provider Counselor Mental Health | DX: F90.2 Attention-deficit hyperactivity disorder, combined type (principal); F43.11 Post-traumatic stress disorder, acute | CPT/HCPCS: 90834 ==

== ENCOUNTER → 2022-02-08 13:48 | Outpatient (BNVA) | payer MEDICAID, SELFPAY | PROVIDERS: PCP Family Medicine; Visit Provider Counselor Mental Health | DX: F90.2 Attention-deficit hyperactivity disorder, combined type (principal); F43.11 Post-traumatic stress disorder, acute | CPT/HCPCS: 90834 ==

== ENCOUNTER → 2022-02-26 12:53 | Outpatient (BNVA) | payer MEDICAID, SELFPAY | PROVIDERS: PCP Family Medicine; Visit Provider Counselor Mental Health | DX: F90.2 Attention-deficit hyperactivity disorder, combined type (principal); F43.11 Post-traumatic stress disorder, acute | CPT/HCPCS: 90832 ==

== ENCOUNTER → 2022-03-17 13:01 | Outpatient (BNVA) | payer MEDICAID, SELFPAY | PROVIDERS: PCP Family Medicine; Visit Provider Counselor Mental Health | DX: F90.2 Attention-deficit hyperactivity disorder, combined type (principal); F43.11 Post-traumatic stress disorder, acute | CPT/HCPCS: 90832 ==

== ENCOUNTER → 2022-03-26 10:02 | Outpatient (BNVA) | payer MEDICAID, SELFPAY | PROVIDERS: PCP Family Medicine; Visit Provider Nurse Practitioner Family | DX: R03.0 Elevated blood-pressure reading, without diagnosis of hypertension (principal) | CPT/HCPCS: 80053; 80061 ==

== ENCOUNTER → 2022-04-28 16:00 | Outpatient (BNVA) | payer MEDICAID, SELFPAY | PROVIDERS: PCP Family Medicine; Visit Provider Counselor Professional | DX: F43.10 Post-traumatic stress disorder, unspecified (principal) | CPT/HCPCS: 90853 ==

== ENCOUNTER → 2022-05-04 10:54 | Outpatient (BNVA) | payer MEDICAID, SELFPAY | PROVIDERS: PCP Family Medicine; Visit Provider Counselor Mental Health | DX: F90.2 Attention-deficit hyperactivity disorder, combined type (principal); F43.11 Post-traumatic stress disorder, acute | CPT/HCPCS: 90832 ==

== ENCOUNTER → 2022-05-05 15:42 | Outpatient (BNVA) | payer MEDICAID, SELFPAY | PROVIDERS: PCP Family Medicine; Visit Provider Counselor Professional | DX: F43.12 Post-traumatic stress disorder, chronic (principal) | CPT/HCPCS: 90853 ==

== ENCOUNTER → 2022-05-19 11:44 | Outpatient (BNVA) | payer MEDICAID, SELFPAY | PROVIDERS: PCP Family Medicine; Visit Provider Counselor Professional | DX: F43.10 Post-traumatic stress disorder, unspecified (principal); F90.2 Attention-deficit hyperactivity disorder, combined type | CPT/HCPCS: 90853 ==

== ENCOUNTER → 2022-05-25 15:50 | Outpatient (BNVA) | payer MEDICAID, SELFPAY | PROVIDERS: PCP Family Medicine; Visit Provider Counselor Mental Health | DX: F90.2 Attention-deficit hyperactivity disorder, combined type (principal); F43.11 Post-traumatic stress disorder, acute | CPT/HCPCS: 90834 ==

== ENCOUNTER → 2022-05-26 14:45 | Outpatient (BNVA) | payer MEDICAID, SELFPAY | PROVIDERS: PCP Family Medicine; Visit Provider Counselor Professional | DX: F90.2 Attention-deficit hyperactivity disorder, combined type (principal); F43.11 Post-traumatic stress disorder, acute | CPT/HCPCS: 90853 ==

== ENCOUNTER → 2023-02-14 11:55 | Outpatient (BNVA) | payer MEDICAID, SELFPAY | PROVIDERS: PCP Nurse Practitioner Family; Visit Provider Nurse Practitioner Family | DX: I10 Essential (primary) hypertension (principal); E66.9 Obesity, unspecified; Z68.39 Body mass index [BMI] 39.0-39.9, adult | CPT/HCPCS: 80053; 80061; 83036 ==

== ENCOUNTER → 2023-06-01 13:46 | Outpatient (BNVA) | payer MEDICAID, SELFPAY | PROVIDERS: PCP Nurse Practitioner Family; Visit Provider Nurse Practitioner Family | DX: L83 Acanthosis nigricans (principal); L70.0 Acne vulgaris | CPT/HCPCS: 99214 ==

== ENCOUNTER → 2023-09-01 14:03 | Outpatient (BNVA) | payer MEDICAID, SELFPAY | PROVIDERS: PCP Nurse Practitioner Family; Visit Provider Nurse Practitioner Family | DX: L83 Acanthosis nigricans (principal); L70.0 Acne vulgaris; L73.1 Pseudofolliculitis barbae | CPT/HCPCS: 99214 ==

== ENCOUNTER → 2023-09-06 10:05 | Outpatient (BNVA) | payer MEDICAID, SELFPAY | PROVIDERS: PCP Nurse Practitioner Family; Visit Provider Nurse Practitioner Family | DX: E66.9 Obesity, unspecified (principal); R03.0 Elevated blood-pressure reading, without diagnosis of hypertension; J45.40 Moderate persistent asthma, uncomplicated; R19.7 Diarrhea, unspecified | CPT/HCPCS: 80053; 80061 ==

== ENCOUNTER → 2023-09-22 09:28 | Outpatient (BNVA) | payer OTHER, SELFPAY | PROVIDERS: PCP Nurse Practitioner Family; Visit Provider Psychiatry & Neurology Psychiatry | DX: F43.12 Post-traumatic stress disorder, chronic (principal); F90.2 Attention-deficit hyperactivity disorder, combined type | CPT/HCPCS: 80061; 83036 ==

== ENCOUNTER → 2023-12-06 10:38 | Outpatient (BNVA) | payer MEDICAID, SELFPAY ==
[2023-11-02 18:10] VITALS: BP 152/90; BMI 38.6
== END ==
PROVIDERS: PCP Nurse Practitioner Family; Visit Provider Nurse Practitioner Family
DX: J02.9 Acute pharyngitis, unspecified (principal)
CPT/HCPCS: 87880

== ENCOUNTER 2024-01-08 21:54 | Inpatient (IN) | payer MEDICAID, SELFPAY ==
[2023-11-02 18:10] VITALS: BP 152/90; BMI 38.6
[2024-01-08 22:00] VITALS: BP 186/106; PULSE 87; RESP 16; TEMP 36.7; O2SAT 98; BMI 37.5
--- NOTE | 2024-01-08 22:52 | XRR_ITS ---
PROCEDURE INFORMATION: Exam: XR Left Hand Exam date and time: 01/08/2024 10:57 PM Age: 23 years old Clinical indication: Left; Patient HX: Lt hand pain/swelling after punching wall TECHNIQUE: Imaging protocol: Radiologic exam of the left hand. Views: 3 or more views. COMPARISON: No relevant prior studies available. FINDINGS: Bones/joints: Normal. Soft tissues: Normal. XR/XR hand LT min 3V* [id number] IMPRESSION: No acute findings. If concern for fracture remains clinically consider 5-7 day follow-up exam and/or CT for further evaluation.
[2024-01-09] VITALS (8 sets, daily range): BP systolic 145–186; BP diastolic 82–106; PULSE 60–80; RESP 16–18; TEMP 36.3–36.6; O2SAT 94–99
[2024-01-09] MEDS: OLANZapine 10 mg ODT 20 MG PO (00:28)
[2024-01-09 00:48] LABS: Basophils % 0.3 %; Eosinophils # 0.2 10^3/uL (0.0-0.8); Eosinophils % 3.1 %; Hematocrit 40.3 % (37-53); Lymphocytes # 2.2 10^3/uL (0.8-4.8); Lymphocytes % 32.2 %; Mean Corpuscular Hemoglobin 31.9 pg (27-33); Mean Corpuscular Volume 93.9 fl (82-101); Mean Platelet Volume 8.7 fL (7.4-10.4); Monocytes # 0.6 10^3/uL (0.2-0.9); Monocytes % 8.5 %; Neutrophils # 3.71 10^3/uL (1.8-7.7); Neutrophils % 55.8 %; Nucleated Red Blood Cells % 0 %; Platelet Count 226 10^3/cmm (157-399); Red Blood Count 4.29 10^6/uL (3.85-5.65); Red Cell Distribution Width 13.4 % (12.1-15.1); White Blood Count 6.67 10^3/uL (3.29-11.43)
[2024-01-09 00:55] LABS: Amphetamines Screen Urine Negative (Negative); Barbiturates Screen Urine Negative (Negative); Benzodiazepines Screen Urine Negative (Negative); Cocaine Screen Urine Negative (Negative); Opiate Screen Urine Negative (Negative); PCP Screen Urine Negative (Negative); THC Screen Urine Negative (Negative)
[2024-01-09 00:59] LABS: Add Urine Microscopic? YES
[2024-01-09 01:00] LABS: Bilirubin Urine Neg (Negative); Blood Urine Neg (Negative); Glucose Urine UA Norm (Normal); Ketones Urine 1+ (Negative); Nitrate Urine Negative (Negative); Protein Urine Trace (Negative); Specific Gravity, Urine 1.015 (1.005-1.030); Urine Appearance Cloudy (CLEAR); Urine Color Yellow (Yellow); pH Urine 8 (5-7)
[2024-01-09 01:01] LABS: Amorphous Sediment Urine 3+ /hpf; Bacteria Urine 1+ /hpf; Leukocyte Esterase Urine Trace (Negative); RBC Urine 0-4 /hpf (0-2); Squamous Epithelial Cell Urine 0-4 /hpf (0-5); Sulfosalicylic Acid Urine Negative (Negative); Urobilinogen Urine 1 mg/dL (Negative); WBC Urine 0-4 /hpf (0-5)
[2024-01-09 01:10] LABS: Acetaminophen < 5.0 ug/mL (10-30); Alanine Aminotransferase 30 U/L (0-41); Albumin Level 4.5 g/dL (3.5-5.2); Alcohol Level < 10 mg/dL (0-10); Alkaline Phosphatase 139 U/L (40-130); Anion Gap 15.7 (5-19); Aspartate Amino Transferase 22 U/L (0-40); Blood Urea Nitrogen 18 mg/dL (6-20); Calcium 8.8 mg/dL (8.5-10.5); Carbon Dioxide 21 mmol/L (22-29); Chloride 108 mmol/L (98-107); Globulin 2.9 g/dL (1.3-4.6); Glomerular Filtration Rate 91.6 mL/min (90-130); Glucose 101 mg/dL (65-115); Osmolality Calculated 294 mOsm/kg (285-295); Potassium 3.7 mmol/L (3.5-5.1); Salicylate < 0.3 mg/dL (3-10); Sodium 141 mmol/L (136-145); Total Bilirubin 0.2 mg/dL (0.15-1.2); Total Protein 7.4 g/dL (6.6-8.7)
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
[2024-01-09] MEDS: acetaminophen 500 mg Tablet 1000 MG PO (02:12)
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
[2024-01-09] MEDS: flu vacc pf 2023-24 (6 mos+) 60 MCG IM (08:42)
[2024-01-09] MEDS: acetaminophen 325 mg Tablet 650 MG PO (08:42)
[2024-01-09] MEDS: carBAMazepine 200 mg Tablet PO ×2 (08:42→18:28)
[2024-01-09] MEDS: loratadine 10 mg Tablet PO (08:42)
--- NOTE | 2024-01-09 09:17 | XRR_ITS ---
PROCEDURE INFORMATION: Exam: XR Right Foot Exam date and time: 01/09/2024 9:37 AM Age: 23 years old Clinical indication: Pain; Foot; Right TECHNIQUE: Imaging protocol: Radiologic exam of the right foot. Views: 3 or more views. COMPARISON: No relevant prior studies available. FINDINGS: Bones/joints: Alignment is normal. No acute fracture. Soft tissues: The heel pad is borderline thickened measuring 24 mm. XR/XR foot RT min 3V* [id number] IMPRESSION: 1. No acute osseous findings. 2. Borderline thickening of the heel fat pad. This finding may be nonpathologic but can be seen in the setting of calcaneal fracture (not visible here), acromegaly, myxedema, callus formation, phenytoin therapy, obesity and peripheral edema. Correlate with physical exam findings.
[2024-01-09] MEDS: budesonide 0.5 mg/2 mL Neb INHALATION (09:34)
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
[2024-01-09] MEDS: trazodone 50 mg Tablet 100 MG PO (19:36)
[2024-01-09] MEDS: ibuprofen 600 mg Tablet PO (19:36)
--- NOTE | 2024-01-10 01:18 | PC.RESP ---
RT unavailable at time medication was due. No resp distress noted.
[2024-01-10 06:00] VITALS: BP 123/78; PULSE 91; RESP 18; TEMP 36.7; O2SAT 99
[2024-01-10 08:00] VITALS: PULSE 85; RESP 16; O2SAT 98
[2024-01-10] MEDS: loratadine 10 mg Tablet PO (09:03)
[2024-01-10] MEDS: carBAMazepine 200 mg Tablet PO (09:03)
[2024-01-10] MEDS: budesonide 0.5 mg/2 mL Neb INHALATION (11:16)
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
[2024-01-10 14:25] VITALS: PULSE 85; RESP 16; O2SAT 98
== END 2024-01-10 15:11 | disposition home or self-care (01) | DRG 886 ==
LOC: ER 01-09 01:52 → NP 01-09 02:30
PROVIDERS: Admitting Provider Psychiatry & Neurology Psychiatry; Emergency Provider Emergency Medicine; PCP Nurse Practitioner Family; Visit Provider Psychiatry & Neurology Psychiatry
DX: F63.9 Impulse disorder, unspecified (principal); R45.850 Homicidal ideations; L30.9 Dermatitis, unspecified; F41.9 Anxiety disorder, unspecified; G31.84 Mild cognitive impairment of uncertain or unknown etiology; F90.9 Attention-deficit hyperactivity disorder, unspecified type; F43.10 Post-traumatic stress disorder, unspecified; J45.909 Unspecified asthma, uncomplicated; Z87.891 Personal history of nicotine dependence; F81.9 Developmental disorder of scholastic skills, unspecified; Z81.1 Family history of alcohol abuse and dependence; Z81.3 Family history of other psychoactive substance abuse and dependence; Z62.810 Personal history of physical and sexual abuse in childhood
CPT/HCPCS: 36415; 73130; 73630; 80053; 80306; 80307; 81001; 85025; 90471; 90686; 94640; 97150; 97165; 99285; J7626

== ENCOUNTER → 2024-01-20 11:08 | Outpatient (BNVA) | payer MEDICAID, SELFPAY ==
[2023-11-02 18:10] VITALS: BP 152/90; BMI 38.6
== END ==
PROVIDERS: PCP Nurse Practitioner Family; Visit Provider Podiatrist Foot & Ankle Surgery
DX: S93.401A Sprain of unspecified ligament of right ankle, initial encounter; S92.314A Nondisplaced fracture of first metatarsal bone, right foot, initial encounter for closed fracture; W22.09XA Striking against other stationary object, initial encounter
CPT/HCPCS: 73630

== ENCOUNTER → 2024-01-31 08:06 | Outpatient (BNVA) | payer MEDICAID, SELFPAY ==
[2023-11-02 18:10] VITALS: BP 152/90; BMI 38.6
== END ==
PROVIDERS: PCP Nurse Practitioner Family; Visit Provider Podiatrist Foot & Ankle Surgery
DX: S92.314D Nondisplaced fracture of first metatarsal bone, right foot, subsequent encounter for fracture with routine healing; S93.401D Sprain of unspecified ligament of right ankle, subsequent encounter; X58.XXXD Exposure to other specified factors, subsequent encounter
CPT/HCPCS: 73630; 99213

== ENCOUNTER → 2024-02-21 12:48 | Outpatient (BNVA) | payer MEDICAID, SELFPAY ==
[2024-02-06 10:09] VITALS: BP 152/90; BMI 38.6
== END ==
PROVIDERS: PCP Nurse Practitioner Family; Visit Provider Podiatrist Foot & Ankle Surgery
DX: S93.401D Sprain of unspecified ligament of right ankle, subsequent encounter; S92.314D Nondisplaced fracture of first metatarsal bone, right foot, subsequent encounter for fracture with routine healing; X58.XXXD Exposure to other specified factors, subsequent encounter
CPT/HCPCS: 73630; 99213

== ENCOUNTER → 2024-04-10 10:03 | Outpatient (BNVA) | payer MEDICAID, SELFPAY ==
[2024-02-06 10:09] VITALS: BP 152/90; BMI 38.6
== END ==
PROVIDERS: PCP Nurse Practitioner Family; Visit Provider Nurse Practitioner Family
DX: L83 Acanthosis nigricans (principal); L70.0 Acne vulgaris
CPT/HCPCS: 99214

== ENCOUNTER → 2024-08-08 08:30 | Outpatient (BNVA) | payer MEDICAID, SELFPAY ==
[2024-02-06 10:09] VITALS: BP 152/90; BMI 38.6
== END ==
PROVIDERS: PCP Nurse Practitioner Family; Visit Provider Nurse Practitioner Family
DX: F31.81 Bipolar II disorder (principal)
CPT/HCPCS: 80053; 80061; 80157; 83036; 84443; 85025

== ENCOUNTER → 2024-10-11 08:43 | Outpatient (BNVA) | payer MEDICAID, SELFPAY ==
[2024-02-06 10:09] VITALS: BP 152/90; BMI 38.6
== END ==
PROVIDERS: PCP Nurse Practitioner Family; Visit Provider Nurse Practitioner Family
DX: L83 Acanthosis nigricans (principal); L70.0 Acne vulgaris; L85.3 Xerosis cutis
CPT/HCPCS: 99214

== ENCOUNTER → 2025-04-10 10:00 | Outpatient (BNVA) | payer MEDICAID, SELFPAY ==
[2024-02-06 10:09] VITALS: BP 152/90; BMI 38.6
== END ==
PROVIDERS: PCP Nurse Practitioner Family; Visit Provider Nurse Practitioner Family
DX: L83 Acanthosis nigricans (principal); L70.0 Acne vulgaris; L85.3 Xerosis cutis
CPT/HCPCS: 99214